=== PATIENT | female | born 1965 | race Caucasian/White ===

== ENCOUNTER 2022-09-14 12:05 | Emergency (ER) | payer OTHER ==
[~2022-09-14] VITALS: Ht 170.2 cm; Wt 49.9 kg
--- NOTE | 2022-09-14 12:23 | NUR ---
DR BARFIELD AT BEDSIDE FOR EVAL.
[2022-09-14] MEDS ORDERED: KETOROLAC TROMETHAMINE INJ 60 MG/2 ML VIAL IM ONE (12:30)
[2022-09-14] MEDS ORDERED: HYDROCODONE/APAP 10/325MG TABLET PO ONE (12:30)
[2022-09-14] MEDS ORDERED: KETOROLAC TROMETHAMINE INJ 30 MG/ML VIAL ONE (12:52)
[2022-09-14] MEDS ORDERED: HYDROCODONE/APAP 10/325MG TABLET ONE (12:52)
[2022-09-14] MEDS ORDERED: BUPIVACAINE 0.5 % PF 150 MG/30 ML VIAL ONE (14:27)
[2022-09-14] MEDS ORDERED: BUPIVACAINE HCL/PF 50 MG/10 ML VIAL IJ ONE (14:30)
[2022-09-14] MEDS ORDERED: ONDANSETRON 4 MG TAB.RAPDIS ONE (16:23)
[2022-09-14] MEDS ORDERED: ONDANSETRON 4 MG TAB.RAPDIS SL ONE (16:30)
--- NOTE | 2022-09-14 16:59 | NUR ---
Patient discharged to home in stable condition. Written and verbal after care instructions given. Patient verbalizes understanding of instruction.
[2022-09-14 17:00] VITALS: BP 132/60
== END 2022-09-14 17:00 | disposition home or self-care (01) ==
LOC: ER 12:10
DX: S52.512A Displaced fracture of left radial styloid process, initial encounter for closed fracture (principal); Z88.8 Allergy status to other drugs, medicaments and biological substances; W18.30XA Fall on same level, unspecified, initial encounter; Y93.01 Activity, walking, marching and hiking; Y92.89 Other specified places as the place of occurrence of the external cause; Y99.8 Other external cause status
CPT/HCPCS: 25605; 99284; 96372; 73090; 73110 ×2; J3490 ×2; J1885; Q0162